=== PATIENT | female | born 1990 | race Caucasian/White ===

== ENCOUNTER → 2016-09-22 | Outpatient (CLI) | payer BC ==
--- NOTE | 2016-09-22 10:08 | US ---
EXAMINATION TYPE: US venous doppler duplex LE RT DATE OF EXAM: 09/22/2016 9:55 AM COMPARISON: NONE CLINICAL HISTORY: RLE Edema R60.9. Swelling, no hx of blood clots or on blood thinners. SIDE PERFORMED: Right VESSELS IMAGED: External Iliac Vein (EIV) Common Femoral Vein Deep Femoral Vein Greater Saphenous Vein * Femoral Vein Popliteal Vein Small Saphenous Vein * Proximal Calf Veins (* superficial vessels) TECHNOLOGIST IMPRESSION: Right Leg: Appears negative for DVT There is satisfactory color flow, phasicity, and compressibility seen in the right lower extremity at the above levels. IMPRESSION: NO ULTRASOUND EVIDENCE FOR ACUTE DVT IN THE RIGHT LOWER EXTREMITY.
== END ==
LOC: RADUSWWP 09:27
PROVIDERS: ATTEND Family Medicine
DX: R60.9 Edema, unspecified (principal)

== ENCOUNTER → 2022-04-01 | Outpatient (CLI) | payer OTHER ==
[2022-04-01 23:14] LABS: Luteinizing Hormone 12.2 mIU/mL; Prolactin 6.8 ng/mL (2.800-29.200)
[2022-04-01 23:33] LABS: HCT 39.8 % (37.2-46.3); HGB 13.2 g/dL (12.0-15.0); MCH 30.3 pg (27.0-32.0); MCHC 33.2 g/dL (32.0-37.0); MCV 91.3 fL (80.0-97.0); Mean Platelet Volume 10.9 fL (9.5-12.2); NRBC Per 100 WBC 0 /100 WBCS (0.0-0.0); Platelet Count 299 X 10*3/uL (140-440); RBC 4.36 X 10*6/uL (4.10-5.20); RDW 12.3 % (11.5-14.5); WBC 8.28 X 10*3/uL (4.50-10.00)
[2022-04-02] LABS: Thyroid Peroxidase Antibodies 12.8 U/mL (0.0-33.0)
[2022-04-02 00:31] LABS: African American GFR (CKD) 131.5 (60.0-200.0); Albumin 4.6 g/dL (3.8-4.9); Albumin/Globulin Ratio 1.51 (1.60-3.17); Anion Gap 13.1 mmol/L (10.00-18.00); BUN/Creat Ratio 16.06 Ratio (12.00-20.00); Blood Urea Nitrogen 11.4 mg/dL (9.0-27.0); Calcium 9.6 mg/dL (8.7-10.3); Carbon Dioxide 23.2 mmol/L (20.0-27.5); Follicle Stimulating Hormone 7.5 mIU/mL; Non-African American GFR(CKD) 113.5 (60.0-200.0); Potassium 4.2 mmol/L (3.5-5.5); T4, Free (Free Thyroxine) 1.08 ng/dL (0.800-1.800); Total Bilirubin 0.3 mg/dL (0.30-1.20); Total Protein 7.6 g/dL (6.2-8.2)
[2022-04-02 02:19] LABS: ACTH 12.1 pg/mL (0.00-45.99)
== END | disposition home or self-care (01) ==
LOC: LABWHC1 15:51
PROVIDERS: ATTEND Internal Medicine Endocrinology, Diabetes & Metabolism
DX: L68.0 Hirsutism (principal); E66.01 Morbid (severe) obesity due to excess calories; R53.83 Other fatigue; Z83.3 Family history of diabetes mellitus
CPT/HCPCS: 36415; 80053; 82024; 82157; 82533; 82607; 82626; 83001; 83002; 83036; 83498; 84146; 84439; 84443; 84480; 85027; 86376

== ENCOUNTER → 2022-04-24 | Outpatient (CLI) | payer OTHER | END | disposition home or self-care (01) | LOC: LABWHC1 09:58 | PROVIDERS: ATTEND Internal Medicine Endocrinology, Diabetes & Metabolism | DX: R53.83 Other fatigue (principal) | CPT/HCPCS: 36415; 82024; 82533 ==